=== PATIENT | male | born 1970 | race Caucasian/White ===

== ENCOUNTER → 2023-08-30 07:11 | Outpatient (REF) | payer BC, SELFPAY | LOC: HWCARD 07:11 | PROVIDERS: ATTENDING PHYSICIAN Internal Medicine Medical Oncology; FAMILY PHYSICIAN Internal Medicine | DX: C92.00 Acute myeloblastic leukemia, not having achieved remission (principal) | CPT/HCPCS: 93005 ==

== ENCOUNTER → 2024-07-11 13:27 | Outpatient (REF) | payer BC, SELFPAY | LOC: RAD 13:27 | PROVIDERS: ATTENDING PHYSICIAN Internal Medicine; FAMILY PHYSICIAN Internal Medicine | DX: R60.0 Localized edema (principal) | CPT/HCPCS: 93971 ==

== ENCOUNTER → 2024-07-23 13:59 | Outpatient (REF) | payer BC, SELFPAY | LOC: RAD 13:59 | PROVIDERS: ATTENDING PHYSICIAN Internal Medicine; FAMILY PHYSICIAN Internal Medicine | DX: R60.0 Localized edema (principal); I82.90 Acute embolism and thrombosis of unspecified vein | CPT/HCPCS: 93971 ==